=== PATIENT | female | born 1955 | race African-American/Black ===

== ENCOUNTER 2019-08-04 19:10 | Emergency (ER) | payer OTHER ==
[~2019-08-04] VITALS: Ht 165.1 cm; Wt 90.0 kg
[~2019-08-04 19:10] MED LIST: ATENOLOL; WARFARIN
[2019-08-04] MEDS ORDERED: FUROSEMIDE 40MG/4ML VIAL IVP ONE (20:30)
[2019-08-04 20:47] LABS: BASOPHILS % 0.6 % (0.0-2.0); HEMATOCRIT. 41.2 % (36.0-48.0); HEMOGLOBIN. 13.7 g/dL (12.0-16.0); LYMPHOCYTES % 16.8 % (20.0-50.0); MEAN CORPUSCULAR HEMOGLOBIN 26.6 pg (28.0-32.0); MEAN CORPUSCULAR VOLUME 80.2 fL (81.0-99.0); MEAN PLATELET VOLUME 7.9 fl (7.4-10.4); MONOCYTES % 7.1 % (2.0-8.0); NEUTROPHILS % 73.5 % (40.0-76.0); PLATELET 272 x1000/uL (130-400); RED BLOOD CELL COUNT 5.14 mill/uL (4.2-5.4); RED CELL DISTRIBUTION WIDTH 13.7 % (11.6-14.6)
[2019-08-04 20:54] LABS: CHLORIDE 104 mEq/L (98-107)
[2019-08-04 20:56] LABS: D-DIMER < 0.19 mg/L FEU (<0.50); INR 2.7; PARTIAL THROMBOPLASTIN TIME 43.4 sec (23.4-31.0); PROTHROMBIN TIME 28.4 sec (9.6-11.0)
[2019-08-04] MEDS ORDERED: MORPHINE SULFATE 4 MG/ML CPJ (NOT FOR IM USE) IV ONE (22:15)
[2019-08-04] MEDS ORDERED: HYDRALAZINE 20MG/ML VIAL IV ONE (22:15)
[2019-08-04 23:55] VITALS: BP 116/57
== END 2019-08-05 00:37 | disposition home or self-care (01) ==
LOC: ER 19:10
DX: R07.89 Other chest pain (principal); R06.82 Tachypnea, not elsewhere classified; R68.83 Chills (without fever); M54.89 Other dorsalgia; I10 Essential (primary) hypertension; I25.2 Old myocardial infarction; Z95.5 Presence of coronary angioplasty implant and graft; Z95.0 Presence of cardiac pacemaker
CPT/HCPCS: 36415; 71045; 80053; 83880; 84484; 85025; 85379; 85610; 85730; 93005; 96374; 96375; 99285; J0360; J1940; J2270